=== PATIENT | female | born 1955 | race Caucasian/White ===

== ENCOUNTER 2016-10-16 11:27 | Emergency (ER) | payer OTHER ==
[~2016-10-16] VITALS: Ht 172.7 cm; Wt 100.0 kg
[2016-10-16 11:31] VITALS: BP 161/82; PULSE 96; RESP 20; TEMP 98.1; O2SAT 91
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
[2016-10-16 11:42] VITALS: BP 161/82; PULSE 91; RESP 20; O2SAT 94
[2016-10-16] MEDS ORDERED: ACETAMINOPHEN/HYDROcodone 325 MG/5 MG TAB PO ONE (11:45)
[2016-10-16 12:34] VITALS: BP 145/91; PULSE 84; RESP 20; O2SAT 94
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
[2016-10-16] MEDS ORDERED: KETOROLAC TROMETHAMINE 60 MG/2 ML (IM) VIAL IM ONE (14:45)
[2016-10-16] MEDS ORDERED: IBUP-232 PO (14:52)
[2016-10-16] MEDS ORDERED: HYDR-3533 PO (14:52)
[2016-10-16] MEDS ORDERED: CYCL1TAB29 PO (14:52)
[2016-10-16 17:00] VITALS: BP 141/68; PULSE 80; RESP 20; O2SAT 95
== END 2016-10-16 18:17 | disposition home or self-care (01) ==
LOC: NEPA 11:27
DX: S16.1XXA Strain of muscle, fascia and tendon at neck level, initial encounter (principal); S20.219A Contusion of unspecified front wall of thorax, initial encounter; S50.812A Abrasion of left forearm, initial encounter; S50.811A Abrasion of right forearm, initial encounter; M25.551 Pain in right hip; M25.512 Pain in left shoulder; V49.88XA Car occupant (driver) (passenger) injured in other specified transport accidents, initial encounter; W22.10XA Striking against or struck by unspecified automobile airbag, initial encounter; Y92.410 Unspecified street and highway as the place of occurrence of the external cause
CPT/HCPCS: 71250; 72125; 73502; 96372; 99284; J1885